=== PATIENT | female | born 1995 | race Caucasian/White ===

== ENCOUNTER 2018-12-01 08:23 | Day surgery (SDC) | payer BC ==
[~2018-12-01] VITALS: Ht 149.9 cm; Wt 56.8 kg
[2018-12-01 09:23] VITALS: BP 125/86; PULSE 92; TEMP 98.2
[2018-12-01] MEDS ORDERED: XYZAL5 MG PO (09:33)
[2018-12-01] MEDS ORDERED: PROBIOTIC FORMU1 CAP PO (09:34)
--- NOTE | 2018-12-01 09:35 | NUR ---
TO [place] AT 0850- CALL LIGHT IN REACH MOTHER AT BEDSIDE.- INES
[2018-12-01 11:00] VITALS: BP 96/79; PULSE 87
--- NOTE | 2018-12-01 11:00 | NUR ---
TO RM 8 PER CART FROM ENDOSCOPY. ALERT ORIENTED X3, TALKING TO STAFF AND MOTHER. AMBULATED TO RECLINER AND TOLERATED WELL
[2018-12-01 11:15] VITALS: BP 112/81; PULSE 84; TEMP 97.8
--- NOTE | 2018-12-01 11:15 | NUR ---
DISCONTINUED IV AND INT- CATHETER INTACT PATIENT RESTING AND WAITING TO TALK WITH DR AKINS.
--- NOTE | 2018-12-01 11:15 | NUR ---
PATIENT DRINKING OWN WATER SHE BROUGHT IN. PATIENT STATED SHE HAS MANY FOOD ALLERGIES AND PERFERS TO EAT WHEN SHE GETS HOME.
[2018-12-01 11:30] VITALS: BP 126/68; PULSE 73
--- NOTE | 2018-12-01 12:00 | NUR ---
DR ROSS INTO TALK WITH PATIENT AND MOTHER.
--- NOTE | 2018-12-01 12:14 | NUR ---
DISCHARGED PER WC BY NURSING STAFF TO PRIVATE CAR IN CARE OF MOTHER- INES
== END 2018-12-01 12:15 | disposition home or self-care (01) ==
LOC: SDCO 08:23
DX: R19.7 Diarrhea, unspecified (principal); R10.84 Generalized abdominal pain; R14.0 Abdominal distension (gaseous); R11.2 Nausea with vomiting, unspecified; Z79.899 Other long term (current) drug therapy; Z83.71 Family history of colonic polyps; R35.8 Other polyuria; R63.1 Polydipsia; R63.2 Polyphagia; R35.0 Frequency of micturition
CPT/HCPCS: OP; J2250; J2405; J3010; J7030